=== PATIENT | female | born 1960 | race American Indian/Alaskan Native ===

== ENCOUNTER 2021-08-17 00:15 | Observation (INO) | payer OTHER ==
--- NOTE | 2021-08-17 00:26 | Emergency Department Report ---
HPI - General Chief Complaint: Syncope Time Seen by Provider: 08/17/21 00:18 - HPI HPI: This is a 61-year-old -[place] female presents to the emergency department via EMS from a local restaurant after she had an initial fall in the bathroom, and then had a syncopal episode and unresponsive episode with EMS. EMS went to evaluate the patient after her initial fall and the patient was awake, oriented, AAO x3. Family just wanted her evaluated. Initially she said that she felt fine and EMS was just assisting her outside so that her daughter can drive her home. At this time the patient suddenly passed out and went unresponsive. There initial call to us was that the patient was a GCS of 7, but she improved as they arrived to the emergency department. At the time of my initial examination the patient is awake, alert, oriented, AAO x3 but does appear slightly somnolent. Patient admits that she has been lethargic over the past week. She has a history of liver cancer without metastasis and is currently on chemotherapy. The patient also has a history of hypertension. ED Review of Systems ROS: Stated complaint: SYNCOPE Other details as noted in HPI Comment: All other systems reviewed and negative Constitutional: weakness. denies: chills, fever Eyes: denies: eye pain, vision change ENT: denies: ear pain, throat pain Respiratory: denies: cough, shortness of breath Cardiovascular: syncope. denies: chest pain Gastrointestinal: denies: abdominal pain, vomiting Genitourinary: denies: dysuria, discharge Musculoskeletal: denies: back pain, arthralgia Skin: denies: rash, lesions Neurological: headache. denies: numbness, paresthesias Physical Exam - Physical Exam Physical Exam: GENERAL: The patient is well-developed well-nourished. HENT: Normocephalic. Patient has moist mucous membranes. EYES: Extraocular motions are intact. Pupils equal reactive to light bilaterally. NECK: Supple. Trachea is midline. CHEST/LUNGS: Clear to auscultation. There is no respiratory distress noted. HEART/CARDIOVASCULAR: Regular. There is no tachycardia. There is no murmur. ABDOMEN: Abdomen is soft, nontender. Patient has normal bowel sounds. There is no abdominal distention. SKIN: Skin is warm and dry. There is some left periorbital ecchymosis and sw elling. NEURO: Patient is somnolent. She is arousable and once awake she is AAO x3. However she goes right back to sleep if not continuously stimulated. Once awake, cranial nerves II through XII are intact. No facial asymmetry. MUSCULOSKELETAL: There is no tenderness or deformity. There is no limitation range of motion. ED Medical Decision Making - Lab Data Result diagrams: 08/17/21 00:51 08/17/21 00:51 Lab Results 08/17/21 08/17/21 08/17/21 Range/Units 00:51 00:51 00:51 WBC 4.8 (4.5-11.0) K/mm3 RBC 4.26 (3.65-5.03) M/mm3 Hgb 11.1 (10.1-14.3) gm/dl Hct 34.3 (30.3-42.9) % MCV 81 (79-97) fl MCH 26 L (28-32) pg MCHC 32 (30-34) % RDW 19.9 H (13.2-15.2) % Plt Count 192 (140-440) K/mm3 Lymph % (Auto) 29.0 (13.4-35.0) % [place] % (Auto) 13.1 H (0.0-7.3) % Eos % (Auto) 1.6 (0.0-4.3) % Baso % (Auto) 0.7 (0.0-1.8) % Lymph # (Auto) 1.4 (1.2-5.4) K/mm3 [place] # (Auto) 0.6 (0.0-0.8) K/mm3 Eos # (Auto) 0.1 (0.0-0.4) K/mm3 Baso # (Auto) 0.0 (0.0-0.1) K/mm3 Seg Neutrophils % 55.6 (40.0-70.0) % Seg Neutrophils # 2.7 (1.8-7.7) K/mm3 PT (12.2-14.9) Sec. INR (0.87-1.13) APTT (24.2-36.6) Sec. Sodium 142 (137-145) mmol/L Potassium 3.2 L (3.6-5.0) mmol/L Chloride 104.0 (98-107) mmol/L Carbon Dioxide 26 (22-30) mmol/L Anion Gap 15 mmol/L BUN 6 L (7-17) mg/dL Creatinine 0.6 (0.6-1.2) mg/dL Estimated GFR > 60 ml/min BUN/Creatinine Ratio 10 % Glucose 116 H (65-100) mg/dL Calcium 9.9 (8.4-10.2) mg/dL Magnesium (1.7-2.3) mg/dL Total Bilirubin 0.60 (0.1-1.2) mg/dL AST 47 H (5-40) units/L ALT 20 (7-56) units/L Alkaline Phosphatase 84 (35-129) units/L Ammonia (25-60) umol/L Troponin T (0.00-0.029) ng/mL Total Protein 6.8 (6.3-8.2) g/dL Albumin 4.0 (3.9-5) g/dL Albumin/Globulin Ratio 1.4 % TSH (0.270-4.200) mlU/mL Plasma/Serum Alcohol 0.15 H (0-0.07) % 08/17/21 08/17/21 08/17/21 Range/Units 00:51 00:51 00:51 WBC (4.5-11.0) K/mm3 RBC (3.65-5.03) M/mm3 Hgb (10.1-14.3) gm/dl Hct (30.3-42.9) % MCV (79-97) fl MCH (28-32) pg MCHC (30-34) % RDW (13.2-15.2) % Plt Count (140-440) K/mm3 Lymph % (Auto) (13.4-35.0) % [place] % (Auto) (0.0-7.3) % Eos % (Auto) (0.0-4.3) % Baso % (Auto) (0.0-1.8) % Lymph # (Auto) (1.2-5.4) K/mm3 [place] # (Auto) (0.0-0.8) K/mm3 Eos # (Auto) (0.0-0.4) K/mm3 Baso # (Auto) (0.0-0.1) K/mm3 Seg Neutrophils % (40.0-70.0) % Seg Neutrophils # (1.8-7.7) K/mm3 PT 16.3 H (12.2-14.9) Sec. INR 1.26 H (0.87-1.13) APTT 30.1 (24.2-36.6) Sec. Sodium (137-145) mmol/L Potassium (3.6-5.0) mmol/L Chloride (98-107) mmol/L Carbon Dioxide (22-30) mmol/L Anion Gap mmol/L BUN (7-17) mg/dL Creatinine (0.6-1.2) mg/dL Estimated GFR ml/min BUN/Creatinine Ratio % Glucose (65-100) mg/dL Calcium (8.4-10.2) mg/dL Magnesium (1.7-2.3) mg/dL Total Bilirubin (0.1-1.2) mg/dL AST (5-40) units/L ALT (7-56) units/L Alkaline Phosphatase (35-129) units/L Ammonia 77.0 H (25-60) umol/L Troponin T < 0.010 (0.00-0.029) ng/mL Total Protein (6.3-8.2) g/dL Albumin (3.9-5) g/dL Albumin/Globulin Ratio % TSH (0.270-4.200) mlU/mL Plasma/Serum Alcohol (0-0.07) % 08/17/21 08/17/21 Range/Units 00:51 00:51 WBC (4.5-11.0) K/mm3 RBC (3.65-5.03) M/mm3 Hgb (10.1-14.3) gm/dl Hct (30.3-42.9) % MCV (79-97) fl MCH (28-32) pg MCHC (30-34) % RDW (13.2-15.2) % Plt Count (140-440) K/mm3 Lymph % (Auto) (13.4-35.0) % [place] % (Auto) (0.0-7.3) % Eos % (Auto) (0.0-4.3) % Baso % (Auto) (0.0-1.8) % Lymph # (Auto) (1.2-5.4) K/mm3 [place] # (Auto) (0.0-0.8) K/mm3 Eos # (Auto) (0.0-0.4) K/mm3 Baso # (Auto) (0.0-0.1) K/mm3 Seg Neutrophils % (40.0-70.0) % Seg Neutrophils # (1.8-7.7) K/mm3 PT (12.2-14.9) Sec. INR (0.87-1.13) APTT (24.2-36.6) Sec. Sodium (137-145) mmol/L Potassium (3.6-5.0) mmol/L Chloride (98-107) mmol/L Carbon Dioxide (22-30) mmol/L Anion Gap mmol/L BUN (7-17) mg/dL Creatinine (0.6-1.2) mg/dL Estimated GFR ml/min BUN/Creatinine Ratio % Glucose (65-100) mg/dL Calcium (8.4-10.2) mg/dL Magnesium 2.20 (1.7-2.3) mg/dL Total Bilirubin (0.1-1.2) mg/dL AST (5-40) units/L ALT (7-56) units/L Alkaline Phosphatase (35-129) units/L Ammonia (25-60) umol/L Troponin T (0.00-0.029) ng/mL Total Protein (6.3-8.2) g/dL Albumin (3.9-5) g/dL Albumin/Globulin Ratio % TSH 0.870 (0.270-4.200) mlU/mL Plasma/Serum Alcohol (0-0.07) % - EKG Data -: EKG Interpreted by Sc EKG shows normal: sinus rhythm, axis, intervals, QRS complexes, ST-T waves Rate: bradycardia (58 bpm) - EKG Data When compared to previous EKG there are: previous EKG unavailable Interpretation: normal EKG - Radiology Data Radiology results: report reviewed CT CERVICAL SPINE WITHOUT CONTRAST INDICATION / CLINICAL INFORMATION: Trauma. TECHNIQUE: Axial CT images were obtained through the cervical spine. Sagittal and coronal reformatted images were produced. All CT scans at this location are performed using CT dose reduction for ALARA by means of automated exposure control. COMPARISON: None available. FINDINGS: Alignment: Normal. No acute subluxation. Geographic Bone Lesion: None present. Fracture: No acute fracture. Degenerative Changes: Moderate multilevel degenerative changes are present, most pronounced at C5- C6 and C6-C7. Epidural Hematoma: Not present. Prevertebral / Paraspinal Soft Tissues: Unremarkable. IMPRESSION: No acute osseous findings in the cervical spine. CT head/brain wo con, CT facial bones wo con INDICATION: Trauma. TECHNIQUE: CT head and CT face. All CT scans at this location are performed using CT dose reduction for ALARA by means of automated exposure control. COMPARISON: None. FINDINGS: Head: Intracranial: Hernandez-white matter differentiation is maintained. No intracranial hemorrhage. No extra axial collection.. No hydrocephalus. No herniation. Calvarium: Left frontal scalp soft tissue swelling with small hematoma. No fracture of the calvarium. Face: Facial bones:Facial bones are intact without fracture. Mandibular condyles are well-seated within the glenoid fossa of the temporal mandibular joint. Bilateral TMJ osteoarthritis. Sinuses: Paranasal sinuses and mastoid air cells are essentially clear. Orbits: Globes are intact. Additional findings:No other significant abnormality. IMPRESSION: 1. Left frontal scalp soft tissue swelling with small hematoma. No acute calvarial fracture or acute intracranial abnormality. 2. No acute facial fracture. - Medical Decision Making This patient presents to the emergency department after she first had a mechanical fall in a restaurant, followed by a syncopal and unresponsive episode just outside of the restaurant. She arrives rather somnolent, but is easily arousable. Once awake she is oriented, AAO x3. She does not have any focal, motor or sensory deficits and her cranial nerves are intact. CT scan of the head without contrast does not show any fracture, hemorrhage, large vessel occlusion, or any other acute process. CT of the facial bones shows a left forehead hematoma, but no facial fractures. CT of the cervical spine without contrast does not show any fracture, subluxation, or any acute process. Patient's labs shows a blood alcohol level of 0.15, and elevated ammonia level of 77. Patient has been given some lactulose for the hyperammonemia. She has been given some IV fluid resuscitation. She was later given a dose of Toradol for her headache after a negative CT scan of the head. She has been reevaluated multiple times over multiple hours and she has improved throughout her ED course. The patient is no longer somnolent. However, given multiple falls, hyperammonemia, the patient will be admitted to the hospital for further evaluation and treatment and was accepted for admission by the hospitalist, Dr. Serrano. Critical Care Time: No Critical care attestation.: If time is entered above; I have spent that time in minutes in the direct care of this critically ill patient, excluding procedure time. ED Disposition Clinical Impression: Syncope and collapse, Hyperammonemia, Hypokalemia, Liver cancer, Unresponsive episode Disposition: ADMITTED INPATIENT Is pt being admited?: Yes Condition: Fair Instructions: Syncope (ED) Referrals: PRIMARY CARE, [Primary Care Provider] - 3-5 Days Time of Disposition: 03:28
--- NOTE | 2021-08-17 00:56 | XRay Report ---
XR chest 1V ap INDICATION / CLINICAL INFORMATION: Altered mental status. COMPARISON: None available. FINDINGS: SUPPORT DEVICES: None. HEART /PULMONARY VASCULATURE: No significant abnormality. LUNGS / PLEURA: No significant pulmonary or pleural abnormality. No pneumothorax. ADDITIONAL FINDINGS: No significant additional findings. IMPRESSION: 1. No acute findings. Signer Name: Theo Montes MD Signed: 08/17/2021 12:52 AM Workstation Name: [id number]
[2021-08-17 01:06] LABS: Basophils % (Auto) 0.7 % (0.0-1.8); Eosinophils # (Auto) 0.1 K/mm3 (0.0-0.4); Eosinophils % (Auto) 1.6 % (0.0-4.3); Hematocrit 34.3 % (30.3-42.9); Hemoglobin 11.1 gm/dl (10.1-14.3); Lymphocytes # (Auto) 1.4 K/mm3 (1.2-5.4); Mean Corpuscular HGB Conc 32 % (30-34); Mean Corpuscular Volume 81 fl (79-97); Monocytes # (Auto) 0.6 K/mm3 (0.0-0.8); Monocytes % (Auto) 13.1 % (0.0-7.3); Platelet Count 192 K/mm3 (140-440); Red Blood Count 4.26 M/mm3 (3.65-5.03); Red Cell Distribution Width 19.9 % (13.2-15.2)
[2021-08-17] MEDS ORDERED: ACETAMINOPHEN 325 MG TAB PO ONE (01:13)
[2021-08-17 01:16] LABS: INR 1.26 (0.87-1.13)
[2021-08-17 01:17] LABS: Partial Thromboplastin Time 30.1 Sec. (24.2-36.6)
--- NOTE | 2021-08-17 01:26 | Cat Scan Report ---
CT CERVICAL SPINE WITHOUT CONTRAST INDICATION / CLINICAL INFORMATION: Trauma. TECHNIQUE: Axial CT images were obtained through the cervical spine. Sagittal and coronal reformatted images were produced. All CT scans at this location are performed using CT dose reduction for ALARA by means of automated exposure control. COMPARISON: None available. FINDINGS: Alignment: Normal. No acute subluxation. Geographic Bone Lesion: None present. Fracture: No acute fracture. Degenerative Changes: Moderate multilevel degenerative changes are present, most pronounced at C5-C6 and C6-C7. Epidural Hematoma: Not present. Prevertebral / Paraspinal Soft Tissues: Unremarkable. IMPRESSION: No acute osseous findings in the cervical spine. Signer Name: Theo Montes MD Signed: 08/17/2021 1:21 AM Workstation Name: [id number]
[2021-08-17] MEDS ORDERED: SODIUM CHLORIDE 0.9% 1000 ML 1,000 ML IV ONE (01:29)
[2021-08-17 01:36] LABS: Alanine Aminotransferase 20 units/L (7-56); Blood Urea Nitrogen 6 mg/dL (7-17); Calcium 9.9 mg/dL (8.4-10.2); Hemolysis Index 9
[2021-08-17 01:40] LABS: BUN/Creatinine Ratio 10
--- NOTE | 2021-08-17 01:40 | Cat Scan Report ---
CT head/brain wo con, CT facial bones wo con INDICATION: Trauma. TECHNIQUE: CT head and CT face. All CT scans at this location are performed using CT dose reduction f or ALARA by means of automated exposure control. COMPARISON: None. FINDINGS: Head: Intracranial: Hernandez-white matter differentiation is maintained. No intracranial hemorrhage. No extra a xial collection.. No hydrocephalus. No herniation. Calvarium: Left frontal scalp soft tissue swelling with small hematoma. No fracture of the calvarium. Face: Facial bones:Facial bones are intact without fracture. Mandibular condyles are well-seated within the glenoid fossa of the temporal mandibular joint. Bilateral TMJ osteoarthritis. Sinuses: Paranasal sinuses and mastoid air cells are essentially clear. Orbits: Globes are intact. Additional findings:No other significant abnormality. IMPRESSION: 1. Left frontal scalp soft tissue swelling with small hematoma. No acute calvarial fracture or acute intracranial abnormality. 2. No acute facial fracture. Signer Name: Theo Montes MD Signed: 08/17/2021 1:35 AM Workstation Name: [id number]
[2021-08-17] MEDS ORDERED: KETOROLAC 30 MG/1 ML INJ IV ONE (01:45)
[2021-08-17] MEDS ORDERED: POTASSIUM CHLORIDE ER 20 MEQ TAB PO ONE ×2 (02:44→12:00)
[2021-08-17] MEDS ORDERED: LACTULOSE 20 GM/30 ML ORAL LIQD PO ONE (03:27)
[2021-08-17] MEDS ORDERED: ONDANSETRON 4 MG/2 ML INJ IV PRN (04:15)
[2021-08-17] MEDS ORDERED: MAGNESIUM HYDROXIDE (MOM) ORAL LIQD UDC PO PRN (04:15)
[2021-08-17] MEDS ORDERED: IBUPROFEN 600 MG TAB PO PRN (04:15)
--- NOTE | 2021-08-17 04:33 | History and Physical Report ---
History of Present Illness Date of examination: 08/17/21 Date of admission: 08/17/2021 Chief complaint: Syncope History of present illness: 61-year-old -[place] female with known history of hypertension and liver cancer currently on chemotherapy brought into the emergency room today by EMS from a local restaurant after a syncopal episode. Patient was said to have had an initial fall in the bathroom and then had a syncopal episode and thereafter and nonresponsive episode according to EMS. Upon arrival of EMS patient was said to be alert and oriented x3 but appeared slightly somnolent. Patient indicates that she has been lethargic over the past week. She has had multiple falls in the past few days. She denies any history of seizure disorder. Patient indicates that she felt slightly dizzy prior to having a fall. She denies any headache and denies any diaphoresis. She admits to drinking alcohol but indicates that she has been trying to cut back since the diagnosis of her liver cancer in January 2021. Patient has been following up with [facility] hematology/oncology for chemotherapy. She denies any chest pain or shortness of breath, no nausea vomiting, no abdominal pain. She denies any fever or chills, denies any sick contacts and no recent travel. Denies any contact with anyone with COVID-19. Patient has had a full immunization against COVID-19. Work-up in the emergency room today, CT scan of the head shows: 1. Left frontal scalp soft tissue swelling with small hematoma. No acute calvarial fracture or acute intracranial abnormality. 2. No acute facial fracture. Chest x-ray shows no acute findings. Labs were significant for PT of 16.3 and INR 1.26. Potassium of 3.2, ammonia level of 77, AST slightly elevated at 47, serum alcohol level 0.15. Patient with history of liver cancer and also history of alcohol abuse being admitted with syncope/collapse, hypokalemia, hypoxia and hyperammonemia. Past History Past Medical History: hypertension, other (Liver ca. on Chemo.) Past Surgical History: cholecystectomy Social history: alcohol abuse Family history: no significant family history Medications and Allergies Allergies Allergy/AdvReac Type Severity Reaction Status Date / Time No Known Allergies Allergy Verified 08/17/21 00:36 Active Meds: Active Medications Heparin Sodium (Porcine) (Heparin 5,000 Unit/1 Ml Vial) 5,000 unit SUB-Q Q8HR DEBORAH Sodium Chloride (Nacl 0.9% 1000 Ml) 1,000 mls @ 250 mls/hr IV ONCE ONE Stop: 08/17/21 05:28 Last Admin: 08/17/21 01:55 Dose: 250 mls/hr Documented by: Sodium Chloride (Nacl 0.9% 1000 Ml) 1,000 mls @ 75 mls/hr IV DIRECT DEBORAH Ibuprofen (Ibuprofen 600 Mg Tab) 600 mg PO Q6H PRN PRN Reason: Pain, Mild (1-3) Magnesium Hydroxide (Magnesium Hydroxide (Mom) Oral Liqd Udc) 30 ml PO Q4H PRN PRN Reason: Constipation Morphine Sulfate (Morphine 2 Mg/1 Ml Inj) 2 mg IV Q4H PRN PRN Reason: Pain, Moderate (4-6) Morphine Sulfate (Morphine 4 Mg/1 Ml Inj) 4 mg IV Q4H PRN PRN Reason: Pain , Severe (7-10) Ondansetron HCl (Ondansetron 4 Mg/2 Ml Inj) 4 mg IV Q8H PRN PRN Reason: Nausea And Vomiting Sodium Chloride (Sodium Chloride 0.9% 10 Ml Flush Syringe) 10 ml IV BID DEBORAH Sodium Chloride (Sodium Chloride 0.9% 10 Ml Flush Syringe) 10 ml IV PRN PRN PRN Reason: LINE FLUSH Review of Systems Constitutional: no fever, no chills Ears, nose, mouth and throat: no nasal congestion, no sore throat Cardiovascular: no chest pain, no palpitations Respiratory: no cough, no shortness of breath Gastrointestinal: no abdominal pain, no nausea, no vomiting, no diarrhea Genitourinary Female: no flank pain, no dysuria, no hematuria Musculoskeletal: no neck pain, no low back pain Integumentary: no rash, no pruritis Neurological: syncope, no headaches, no confusion Psychiatric: no anxiety, no depression Endocrine: no polyphagia, no polydipsia, no polyuria, no nocturia Exam - Constitutional Vitals: Temp Pulse Resp BP Pulse Ox 70 22 141/83 97 08/17/21 03:15 08/17/21 03:15 08/17/21 03:15 08/17/21 03:15 General appearance: Present: no acute distress, well-nourished, obese, other (Bruises and swelling over the left eyelid.) - EENT Eyes: Present: PERRL, EOM intact. Absent: scleral icterus ENT: hearing intact, clear oral mucosa, dentition normal - Neck Neck: Present: supple, normal ROM - Respiratory Respiratory effort: normal Respiratory: bilateral: CTA - Cardiovascular Rhythm: regular Heart Sounds: Present: S1 & S2. Absent: gallop, systolic murmur, diastolic murmur, rub, click - Extremities Extremities: no ischemia, pulses intact, pulses symmetrical, No edema, normal temperature, normal color, Full ROM Peripheral Pulses: within normal limits - Abdominal General gastrointestinal: Present: soft, non-tender, non-distended, normal bowel sounds. Absent: mass - Integumentary Integumentary: Present: clear, warm, dry. Absent: rash - Musculoskeletal Musculoskeletal: strength equal bilaterally - Psychiatric Psychiatric: appropriate mood/affect, intact judgment & insight, memory intact, cooperative - Neurologic Neurologic: CNII-XII intact, no focal deficits, moves all extremities HEART Score - HEART Score Troponin: Troponin T < 0.010 ng/mL (0.00-0.029) 08/17/21 00:51 Results - Labs CBC & Chem 7: 08/17/21 00:51 08/17/21 00:51 Labs: Abnormal lab results 08/17/21 08/17/21 08/17/21 Range/Units 00:51 00:51 00:51 MCH 26 L (28-32) pg RDW 19.9 H (13.2-15.2) % Day % (Auto) 13.1 H (0.0-7.3) % PT (12.2-14.9) Sec. INR (0.87-1.13) Potassium 3.2 L (3.6-5.0) mmol/L BUN 6 L (7-17) mg/dL Glucose 116 H (65-100) mg/dL AST 47 H (5-40) units/L Ammonia (25-60) umol/L Plasma/Serum Alcohol 0.15 H (0-0.07) % 08/17/21 08/17/21 Range/Units 00:51 00:51 MCH (28-32) pg RDW (13.2-15.2) % Day % (Auto) (0.0-7.3) % PT 16.3 H (12.2-14.9) Sec. INR 1.26 H (0.87-1.13) Potassium (3.6-5.0) mmol/L BUN (7-17) mg/dL Glucose (65-100) mg/dL AST (5-40) units/L Ammonia 77.0 H (25-60) umol/L Plasma/Serum Alcohol (0-0.07) % Assessment and Plan - Patient Problems (1) Syncope and collapse Current Visit: Yes Status: Acute Plan to address problem: Etiology unclear. Possibly secondary to alcohol abuse. However we will schedule patient for carotid Doppler, echocardiogram. Patient had an episode of unresponsiveness with unclear etiology. We will place consult to neurology for evaluation and further recommendations. (2) Hyperammonemia Current Visit: Yes Status: Acute Plan to address problem: Possibly secondary to a history of hepatitis with concurrent liver cancer. We will monitor ammonia levels. Patient has been given lactulose. (3) Hypokalemia Current Visit: Yes Status: Acute Plan to address problem: We will replete potassium and monitor chemistry. (4) Liver cancer Current Visit: Yes Status: Acute Plan to address problem: Patient has known history of hepatitis C. She is currently on chemotherapy for liver cancer. No history of metastasis. She follows up with [facility] oncology. (5) Alcohol abuse Current Visit: Yes Status: Acute Plan to address problem: Patient counseled on quitting alcohol abuse. We will place on [facility] protocol. (6) DVT prophylaxis Current Visit: Yes Status: Acute Plan to address problem: Patient placed on subcutaneous heparin. (7) Full code status Current Visit: Yes Status: Acute Plan to address problem: Patient is full code.
[2021-08-17] MEDS ORDERED: LORazepam 2 MG/ML VIAL IV PRN ×3 (05:00)
[2021-08-17] MEDS: HEPARIN 5,000 UNIT/1 ML VIAL SUB-Q SCH ×3 (06:20→22:05)
[2021-08-17] MEDS: MORPHINE 2 MG/1 ML INJ IV PRN ×2 (06:20→19:58)
[2021-08-17 08:33] LABS: Amphetamine Screen,Urine Negative; Cannabinoid Screen,Urine Negative; Cocaine Screen,Urine Negative; Methadone Screen,Urine Negative; Opiate Screen,Urine Negative
[2021-08-17 09:03] LABS: Benzodiazepines Screen,Urine Positive
--- NOTE | 2021-08-17 11:08 | Progress Note ---
Assessment and Plan Assessment and plan: Assessment and Plan - Patient Problems (1) Syncope and collapse Current Visit: Yes Status: Acute Plan to address problem: Etiology unclear. Possibly secondary to alcohol abuse. However we will schedule patient for carotid Doppler, echocardiogram. Patient had an episode of unresponsiveness with unclear etiology. We will place consult to neurology for evaluation and further recommendations. (2) Hyperammonemia Current Visit: Yes Status: Acute Plan to address problem: Possibly secondary to a history of hepatitis with concurrent liver cancer. We will monitor ammonia levels. Patient has been given lactulose. (3) Hypokalemia Current Visit: Yes Status: Acute Plan to address problem: We will replete potassium and monitor chemistry. (4) Liver cancer Current Visit: Yes Status: Acute Plan to address problem: Patient has known history of hepatitis C. She is currently on chemotherapy for liver cancer. No history of metastasis. She follows up with [facility] oncology. (5) Alcohol abuse Current Visit: Yes Status: Acute Plan to address problem: Patient counseled on quitting alcohol abuse. We will place on CIWA protocol. (6) DVT prophylaxis Current Visit: Yes Status: Acute Plan to address problem: Patient placed on subcutaneous heparin. (7) Full code status Current Visit: Yes Status: Acute Plan to address problem: Patient is full code. 08/17/21 patient is seen and examined. Lab and medication reviewed. Patient complained of some pain in the left side of the face and tailbone.CT scan of the head shows: 1. Left frontal scalp soft tissue swelling with small hematoma. No acute ca lvarial fracture or acute intracranial abnormality. 2. No acute facial fracture. Continue current management. We will do a x-ray of the pelvis. PT evaluation. Follow carotid Doppler and echocardiogram. Neurology evaluation. History of Present Illness Date of examination: 08/17/21 Date of admission: 08/17/2021 Chief complaint: Syncope History of present illness: 61-year-old -Ang[place] female with known history of hypertension and liver cancer currently on chemotherapy brought into the emergency room today by EMS from a local restaurant after a syncopal episode. Patient was said to have had an initial fall in the bathroom and then had a syncopal episode and thereafter and nonresponsive episode according to EMS. Upon arrival of EMS patient was said to be alert and oriented x3 but appeared slightly somnolent. Patient indicates that she has been lethargic over the past week. She has had multiple falls in the past few days. She denies any history of seizure disorder. Patient indicates that she felt slightly dizzy prior to having a fall. She den ies any headache and denies any diaphoresis. She admits to drinking alcohol but indicates that she has been trying to cut back since the diagnosis of her liver cancer in January 2021. Patient has been following up with [facility] hematology/oncology for chemotherapy. She denies any chest pain or shortness of breath, no nausea vomiting, no abdominal pain. She denies any fever or chills, denies any sick contacts and no recent travel. Denies any contact with anyone with COVID-19. Patient has had a full immunization against COVID-19. Work-up in the emergency room today, CT scan of the head shows: 1. Left frontal scalp soft tissue swelling with small hematoma. No acute calvarial fracture or acute intracranial abnormality. 2. No acute facial fracture. Chest x-ray shows no acute findings. Labs were significant for PT of 16.3 and INR 1.26. Potassium of 3.2, ammonia level of 77, AST slightly elevated at 47, serum alcohol level 0.15. Patient with history of liver cancer and also history of alcohol abuse being admitted with syncope/collapse, hypokalemia, hypoxia and hyperammonemia. History Interval history: Patient is seen and examined Lab and medication reviewed Patient is admitted this morning complaining of pain in the left side of the face and tailbone. No shortness of breath no chest pain. Hospitalist Physical - Constitutional Vitals: Temp Pulse Resp BP Pulse Ox 97.7 F 59 L 14 145/79 99 08/17/21 08:07 08/17/21 08:11 08/17/21 08:11 08/17/21 08:11 08/17/21 08:11 General appearance: Present: no acute distress, mild distress, well-nourished, obese, other (Bruises and swelling over the left eyelid.) - EENT Eyes: Present: PERRL, EOM intact ENT: hearing intact, clear oral mucosa, dentition normal - Neck Neck: Present: supple, normal ROM - Respiratory Respiratory effort: normal - Cardiovascular Rhythm: regular Heart Sounds: Present: S1 & S2 - Extremities Extremities: no ischemia, pulses intact, No edema Peripheral Pulses: within normal limits - Abdominal General gastrointestinal: soft, non-tender, non-distended, normal bowel sounds - Integumentary Integumentary: Present: clear, warm, dry - Psychiatric Psychiatric: appropriate mood/affect, intact judgment & insight - Neurologic Neurologic: CNII-XII intact, moves all extremities - Allied Health Allied health notes reviewed: nursing HEART Score - HEART Score Troponin: Troponin T < 0.010 ng/mL (0.00-0.029) 08/17/21 00:51 Results - Labs CBC & Chem 7: 08/17/21 00:51 08/17/21 00:51 Labs: Laboratory Last Values WBC 4.8 K/mm3 (4.5-11.0) 08/17/21 00:51 RBC 4.26 M/mm3 (3.65-5.03) 08/17/21 00:51 Hgb 11.1 gm/dl (10.1-14.3) 08/17/21 00:51 Hct 34.3 % (30.3-42.9) 08/17/21 00:51 MCV 81 fl (79-97) 08/17/21 00:51 MCH 26 pg (28-32) L 08/17/21 00:51 MCHC 32 % (30-34) 08/17/21 00:51 RDW 19.9 % (13.2-15.2) H 08/17/21 00:51 Plt Count 192 K/mm3 (140-440) 08/17/21 00:51 Lymph % (Auto) 29.0 % (13.4-35.0) 08/17/21 00:51 [place] % (Auto) 13.1 % (0.0-7.3) H 08/17/21 00:51 Eos % (Auto) 1.6 % (0.0-4.3) 08/17/21 00:51 Baso % (Auto) 0.7 % (0.0-1.8) 08/17/21 00:51 Lymph # (Auto) 1.4 K/mm3 (1.2-5.4) 08/17/21 00:51 [place] # (Auto) 0.6 K/mm3 (0.0-0.8) 08/17/21 00:51 Eos # (Auto) 0.1 K/mm3 (0.0-0.4) 08/17/21 00:51 Baso # (Auto) 0.0 K/mm3 (0.0-0.1) 08/17/21 00:51 Seg Neutrophils % 55.6 % (40.0-70.0) 08/17/21 00:51 Seg Neutrophils # 2.7 K/mm3 (1.8-7.7) 08/17/21 00:51 PT 16.3 Sec. (12.2-14.9) H 08/17/21 00:51 INR 1.26 (0.87-1.13) H 08/17/21 00:51 APTT 30.1 Sec. (24.2-36.6) 08/17/21 00:51 Sodium 142 mmol/L (137-145) 08/17/21 00:51 Potassium 3.2 mmol/L (3.6-5.0) L 08/17/21 00:51 Chloride 104.0 mmol/L (98-107) 08/17/21 00:51 Carbon Dioxide 26 mmol/L (22-30) 08/17/21 00:51 Anion Gap 15 mmol/L 08/17/21 00:51 BUN 6 mg/dL (7-17) L 08/17/21 00:51 Creatinine 0.6 mg/dL (0.6-1.2) 08/17/21 00:51 Estimated GFR > 60 ml/min 08/17/21 00:51 BUN/Creatinine Ratio 10 % 08/17/21 00:51 Glucose 116 mg/dL (65-100) H 08/17/21 00:51 Calcium 9.9 mg/dL (8.4-10.2) 08/17/21 00:51 Magnesium 2.20 mg/dL (1.7-2.3) 08/17/21 00:51 Total Bilirubin 0.60 mg/dL (0.1-1.2) 08/17/21 00:51 AST 47 units/L (5-40) H 08/17/21 00:51 ALT 20 units/L (7-56) 08/17/21 00:51 Alkaline Phosphatase 84 units/L (35-129) 08/17/21 00:51 Ammonia 77.0 umol/L (25-60) H 08/17/21 00:51 Troponin T < 0.010 ng/mL (0.00-0.029) 08/17/21 00:51 Total Protein 6.8 g/dL (6.3-8.2) 08/17/21 00:51 Albumin 4.0 g/dL (3.9-5) 08/17/21 00:51 Albumin/Globulin Ratio 1.4 % 08/17/21 00:51 TSH 0.870 mlU/mL (0.270-4.200) 08/17/21 00:51 Urine Opiates Screen Negative 08/17/21 08:01 Urine Methadone Screen Negative 08/17/21 08:01 Ur Barbiturates Screen Negative 08/17/21 08:01 Ur Phencyclidine Scrn Negative 08/17/21 08:01 Ur Amphetamines Screen Negative 08/17/21 08:01 U Benzodiazepines Scrn Positive 08/17/21 08:01 Urine Cocaine Screen Negative 08/17/21 08:01 U Marijuana (THC) Screen Negative 08/17/21 08:01 Drugs of Abuse Note Disclamer 08/17/21 08:01 Plasma/Serum Alcohol 0.15 % (0-0.07) H 08/17/21 00:51 Active Medications - Current Medications Current Medications: Generic Name Dose Route Start Last Admin Trade Name Freq PRN Reason Stop Dose Admin Heparin Sodium (Porcine) 5,000 unit 08/17/21 06:00 08/17/21 06:20 Heparin 5,000 Unit/1 Ml Vial SUB-Q 5,000 unit Q8HR DEBORAH Administration Sodium Chloride 1,000 mls @ 75 mls/hr 08/17/21 04:15 Nacl 0.9% 1000 Ml IV DIRECT DEBORAH Ibuprofen 600 mg 08/17/21 04:15 Ibuprofen 600 Mg Tab PO Q6H PRN Pain, Mild (1-3) Lorazepam 2 mg 08/17/21 05:00 Lorazepam 2 Mg/Ml Vial IV Q1HR PRN CIWA-Ar 8-15 Lorazepam 4 mg 08/17/21 05:00 Lorazepam 2 Mg/Ml Vial IV Q1HR PRN CIWA-Ar 16-25 Lorazepam 4 mg 08/17/21 05:00 Lorazepam 2 Mg/Ml Vial IV Q15MIN PRN CIWA-Ar >25 Magnesium Hydroxide 30 ml 08/17/21 04:15 Magnesium Hydroxide (Mom) Oral Liqd Udc PO Q4H PRN Constipation Morphine Sulfate 2 mg 08/17/21 04:15 08/17/21 06:20 Morphine 2 Mg/1 Ml Inj IV 2 mg Q4H PRN Administration Pain, Moderate (4-6) Morphine Sulfate 4 mg 08/17/21 04:15 Morphine 4 Mg/1 Ml Inj IV Q4H PRN Pain , Severe (7-10) Ondansetron HCl 4 mg 08/17/21 04:15 Ondansetron 4 Mg/2 Ml Inj IV Q8H PRN Nausea And Vomiting Sodium Chloride 10 ml 08/17/21 10:00 Sodium Chloride 0.9% 10 Ml Flush Syringe IV BID DEBORAH Sodium Chloride 10 ml 08/17/21 04:15 Sodium Chloride 0.9% 10 Ml Flush Syringe IV PRN PRN LINE FLUSH Nutrition/Malnutrition Assess - Malnutrition Assessment Minimum of two criteria: Yes - Attestation Statement I have reviewed and agreed w/ Malnutrition eval & tx plan: Yes
[2021-08-17 11:22] LABS: Bilirubin,Urine NEG (Negative); Blood,Urine NEG (Negative); Color,Urine Yellow (Yellow); Mucus,Urine FEW /HPF; Protein,Urine <15 mg/dL mg/dL (Negative); Urobilinogen,Urine < 2.0 mg/dL (<2.0)
--- NOTE | 2021-08-17 11:47 | XRay Report ---
AP pelvis INDICATION: Pain in the tailbone. COMPARISON: None. IMPRESSION: No acute osseous abnormality. Soft tissues are normal. Normal alignment. No significa nt DJD. Signer Name: Aries Lima MD Signed: 08/17/2021 11:43 AM Workstation Name: [email or web address]
--- NOTE | 2021-08-17 13:15 | Electrocardiograph Report ---
[facility] Test Date: 2021-08-17 Test Time: 00:28:29 Pat Name: MARBELLA VIDALES Department: Room: A466 1 Gender: F Pmo Lead: MICHELLE : 1960 Requested By: HEATHER JAMES Order Number: [id number] Reading MD: Bishop Garcia Measurements Intervals [place] Rate: 58 P: 44 NE: 184 QRS: 46 QRSD: 94 T: 43 QT: 451 QTc: 442 Interpretive Statements Sinus bradycardia No previous ECG available for comparison Electronically Signed On 08-17-2021 13:15:02 EDT by Bishop Garcia
[2021-08-17] MEDS: SODIUM CHLORIDE 0.9% 1000 ML 1,000 ML IV SCH (17:00)
[2021-08-18] MEDS: MORPHINE 4 MG/1 ML INJ IV PRN ×3 (00:26→22:06)
[2021-08-18 01:41] LABS: Blood Urea Nitrogen 8 mg/dL (7-17); Calcium 7.8 mg/dL (8.4-10.2); Hemolysis Index 4
[2021-08-18 01:44] LABS: BUN/Creatinine Ratio 13
[2021-08-18] MEDS ORDERED: POTASSIUM CHLORIDE ER 20 MEQ TAB PO ONE (05:00)
[2021-08-18] MEDS: SODIUM CHLORIDE 0.9% 1000 ML 1,000 ML IV SCH ×2 (05:11→08:43)
[2021-08-18] MEDS: HEPARIN 5,000 UNIT/1 ML VIAL SUB-Q SCH (05:12)
[2021-08-18 06:14] LABS: Basophils % (Auto) 0.4 % (0.0-1.8); Eosinophils # (Auto) 0.2 K/mm3 (0.0-0.4); Eosinophils % (Auto) 5.1 % (0.0-4.3); Hematocrit 29.8 % (30.3-42.9); Hemoglobin 9.9 gm/dl (10.1-14.3); Lymphocytes # (Auto) 1.7 K/mm3 (1.2-5.4); Lymphocytes % (Auto) 42.3 % (13.4-35.0); Mean Corpuscular HGB Conc 33 % (30-34); Mean Corpuscular Volume 81 fl (79-97); Monocytes # (Auto) 0.4 K/mm3 (0.0-0.8); Monocytes % (Auto) 8.9 % (0.0-7.3); Platelet Count 139 K/mm3 (140-440); Red Blood Count 3.67 M/mm3 (3.65-5.03); Red Cell Distribution Width 20.2 % (13.2-15.2)
[2021-08-18 06:19] LABS: Blood Urea Nitrogen 8 mg/dL (7-17); Calcium 8.3 mg/dL (8.4-10.2); Hemolysis Index 5; INR 1.4 (0.87-1.13)
[2021-08-18 06:42] LABS: BUN/Creatinine Ratio 13
--- NOTE | 2021-08-18 08:38 | Discharge Summary ---
Providers - Providers Date of Admission: 08/17/21 03:28 Attending physician: KEENAN ELI MD 08/17/21 04:15 Consult to Physician [CONS] Routine Comment: Consulting Provider: MIYA MUIR Physician Instructions: Reason For Exam: Altered Mental status, Unresponsiveness Primary care physician: OCCUPATIONAL THERAPY TEACHER Hospitalization Reason for admission: syncope collapase Condition: Stable Hospital course: 61-year-old -[place] female with known history of hypertension and liver cancer currently on chemotherapy brought into the emergency room today by EMS from a local restaurant after a syncopal episode. Patient was said to have had an initial fall in the bathroom and then had a syncopal episode and thereafter and nonresponsive episode according to EMS. Upon arrival of EMS patient was said to be alert and oriented x3 but appeared slightly somnolent. Patient indicates that she has been lethargic over the past week. She has had multiple falls in the past few days. She denies any history of seizure disorder. Patient indicates that she felt slightly dizzy prior to having a fall. She denies any headache and denies any diaphoresis. She admits to drinking alcohol but indicates that she has been trying to cut back since the diagnosis of her liver cancer in January 2021. Patient has been following up with [facility] hematology/oncology for chemotherapy. She denies any chest pain or shortness of breath, no nausea vomiting, no abdominal pain. She denies any fever or chills, denies any sick contacts and no recent travel. Denies any contact with anyone with COVID-19. Patient has had a full immunization against COVID-19. Work-up in the emergency room today, CT scan of the head shows: 1. Left frontal scalp soft tissue swelling with small hematoma. No acute calvarial fracture or acute intracranial abnormality. 2. No acute facial fracture. Chest x-ray shows no acute findings. Labs were significant for PT of 16.3 and INR 1.26. Potassium of 3.2, ammonia level of 77, AST slightly elevated at 47, serum alcohol level 0.15. Patient with history of liver cancer and also history of alcohol abuse being adm itted with syncope/collapse, hypokalemia, hypoxia and hyperammonemia. 08/17/21 patient is seen and examined. Lab and medication reviewed. Patient complained of some pain in the left side of the face and tailbone.CT scan of the head shows: 1. Left frontal scalp soft tissue swelling with small hematoma. No acute calvarial fracture or acute intracranial abnormality. 2. No acute facial fracture. Continue current management. We will do a x-ray of the pelvis. PT evaluation. Follow carotid Doppler and echocardiogram. Neurology evaluation. 08/18: Pt seen and examined, resting well, still with pain in the low back, imaging studies with no new complaints. Patient pain improved. Recommend follow up with cardiology (1) Syncope and collapse (2) Hyperammonemia (3) Hypokalemia (4) Liver cancer (5) Alcohol abuse (6) Low back pain Disposition: 01 HOME / SELF CARE / HOMELESS Final Discharge Diagnosis (Prints w/discharge instructions): Syncope and collapse Time spent for discharge: 35 MINS Core Measure Documentation - Palliative Care Palliative Care/ Comfort Measures: Not Applicable - Core Measures Any of the following diagnoses?: none Exam - Constitutional Vitals: Temp Pulse Resp BP Pulse Ox 98.2 F 72 18 141/68 98 08/18/21 04:32 08/18/21 04:32 08/18/21 04:32 08/18/21 04:32 08/18/21 05:00 General appearance: Present: no acute distress, well-nourished, obese - EENT Eyes: Present: PERRL, EOM intact ENT: hearing intact, clear oral mucosa - Neck Neck: Present: supple, normal ROM - Respiratory Respiratory effort: normal Respiratory: bilateral: CTA - Cardiovascular Rhythm: regular Heart Sounds: Present: S1 & S2. Absent: systolic murmur, diastolic murmur - Extremities Extremities: no ischemia, pulses intact, pulses symmetrical, No edema, normal temperature, normal color, Full ROM Peripheral Pulses: within normal limits - Abdominal General gastrointestinal: Present: soft, non-tender, non-distended, normal bowel sounds - Musculoskeletal Musculoskeletal: strength equal bilaterally - Psychiatric Psychiatric: appropriate mood/affect - Neurologic Neurologic: CNII-XII intact, moves all extremities - Allied Health Allied health notes reviewed: nursing Plan Activity: advance as tolerated, up only with assistance Diet: low fat Special Instructions: record daily weights, record daily BP diary Plan of Treatment: please follow with your mcat tutor considering syncope Also if any persistent headache, ringing in the ear, Follow up with: PRIMARY CARE, [Primary Care Provider] - 3-5 Days
[2021-08-18] MEDS: POTASSIUM CHLORIDE 10 MEQ 10 MEQ/100 ML BAG IV SCH ×4 (08:42→13:19)
--- NOTE | 2021-08-18 08:43 | Consultation ---
Past History Past Medical History: hypertension, other (Liver ca. on Chemo.) Past Surgical History: cholecystectomy Social history: alcohol abuse Family history: no significant family history Medications and Allergies Allergies Allergy/AdvReac Type Severity Reaction Status Date / Time No Known Allergies Allergy Verified 08/17/21 00:36 Home Medications Medication Instructions Recorded Confirmed Last Taken Type ALPRAZolam [Xanax TAB] 0.5 mg PO BID PRN 08/17/21 08/17/21 Unknown History Biotin [Biotin 5,000 rapdis] 5,000 mcg PO DAILY 08/17/21 08/17/21 Unknown History Capecitabine [Xeloda] 500 mg PO BID 08/17/21 08/17/21 08/17/21 18:00 History Cetirizine HCl [Cetirizine 5mg tab] 10 mg PO DAILY 08/17/21 08/17/21 Unknown History Cholecalciferol (Vitamin D3) 125 mcg PO DAILY 08/17/21 08/17/21 Unknown History [Vitamin D3 5,000 UNIT] HYDROcodone/APAP 7.5-325 [Oscar 7.5 mg PO BID PRN 08/17/21 08/17/21 Unknown History 7.5-325 mg TAB] Potassium Chloride [K-Dur] 20 meq PO QDAY 08/17/21 08/17/21 Unknown History Sertraline [Zoloft] 100 mg PO QDAY 08/17/21 08/17/21 Unknown History Active Meds: Active Medications Sodium Chloride (Nacl 0.9% 1000 Ml) 1,000 mls @ 75 mls/hr IV DIRECT DEBORAH Last Admin: 08/18/21 05:11 Dose: 75 mls/hr Documented by: Potassium Chloride (Kcl 10meq/100ml) 10 meq in 100 mls @ 100 mls/hr IV Q1H DEBORAH Stop: 08/18/21 11:59 Ibuprofen (Ibuprofen 600 Mg Tab) 600 mg PO Q6H PRN PRN Reason: Pain, Mild (1-3) Lorazepam (Lorazepam 2 Mg/Ml Vial) 2 mg IV Q1HR PRN PRN Reason: CIWA-Ar 8-15 Lorazepam (Lorazepam 2 Mg/Ml Vial) 4 mg IV Q1HR PRN PRN Reason: CIWA-Ar 16-25 Lorazepam (Lorazepam 2 Mg/Ml Vial) 4 mg IV Q15MIN PRN PRN Reason: CIWA-Ar >25 Magnesium Hydroxide (Magnesium Hydroxide (Mom) Oral Liqd Udc) 30 ml PO Q4H PRN PRN Reason: Constipation Morphine Sulfate (Morphine 2 Mg/1 Ml Inj) 2 mg IV Q4H PRN PRN Reason: Pain, Moderate (4-6) Last Admin: 08/17/21 19:58 Dose: 2 mg Documented by: Morphine Sulfate (Morphine 4 Mg/1 Ml Inj) 4 mg IV Q4H PRN PRN Reason: Pain , Severe (7-10) Last Admin: 08/18/21 05:07 Dose: 4 mg Documented by: Ondansetron HCl (Ondansetron 4 Mg/2 Ml Inj) 4 mg IV Q8H PRN PRN Reason: Nausea And Vomiting Sodium Chloride (Sodium Chloride 0.9% 10 Ml Flush Syringe) 10 ml IV BID DEBORAH Last Admin: 08/17/21 22:08 Dose: 10 ml Documented by: Sodium Chloride (Sodium Chloride 0.9% 10 Ml Flush Syringe) 10 ml IV PRN PRN PRN Reason: LINE FLUSH Last Admin: 08/18/21 00:31 Dose: 10 ml Documented by: Physical Examination - Vital Signs Vital Signs: Vital Signs Pulse Resp BP 61 22 130/74 08/17/21 00:45 08/17/21 00:45 08/17/21 00:45 Results - Laboratory Findings CBC and BMP: 08/18/21 05:16 08/19/21 00:53 Abnormal Lab Findings: Abnormal Labs 08/17/21 08/17/21 08/17/21 00:51 00:51 00:51 WBC Hgb Hct MCH 26 L RDW 19.9 H Plt Count Lymph % (Auto) [place] % (Auto) 13.1 H Eos % (Auto) PT INR Potassium 3.2 L Chloride BUN 6 L Glucose 116 H Calcium AST 47 H Ammonia Plasma/Serum Alcohol 0.15 H 08/17/21 08/17/21 08/18/21 00:51 00:51 01:11 WBC Hgb Hct MCH RDW Plt Count Lymph % (Auto) [place] % (Auto) Eos % (Auto) PT 16.3 H INR 1.26 H Potassium 3.3 L Chloride BUN Glucose 102 H Calcium 7.8 L D AST Ammonia 77.0 H Plasma/Serum Alcohol 08/18/21 08/18/2108/18/21 05:16 05:16 05:16 WBC 4.1 L Hgb 9.9 L Hct 29.8 L MCH 27 L RDW 20.2 H Plt Count 139 L Lymph % (Auto) 42.3 H [place] % (Auto) 8.9 H Eos % (Auto) 5.1 H PT 17.6 H INR 1.40 H Potassium 3.3 L Chloride 107.7 H BUN Glucose Calcium 8.3 L AST Ammonia Plasma/Serum Alcohol
[2021-08-18] MEDS: MORPHINE 2 MG/1 ML INJ IV PRN (18:18)
--- NOTE | 2021-08-18 23:10 | Vascular Lab Report ---
DUPLEX DOPPLER ULTRASOUND CAROTID, BILATERAL INDICATION / CLINICAL INFORMATION: Syncope. COMPARISON: None available. FINDINGS: RIGHT CAROTID: - PLAQUE ESTIMATE (%): < 50% - CCA velocity: 109 cm/sec. - ICA peak systolic velocity: 81 cm/sec. - ICA/CCA PSV Ratio: Less than 2 Right Vertebral Artery: Antegrade flow. LEFT CAROTID: - PLAQUE ESTIMATE: < 50% - CCA velocity: 87 cm/sec. - ICA peak systolic velocity: 57 cm/sec. - ICA/CCA PSV Ratio: Less than 2 Left Vertebral Artery: Antegrade flow. IMPRESSION: 1. Right Internal Carotid Artery: Less than 50% diameter stenosis. 2. Left Internal Carotid Artery: Less than 50% diameter stenosis. Velocity criteria are extrapolated from diameter data as defined by the Society of Radiologists in Ul trasound Consensus Conference, Radiology 2003; 229;340-346. NO STENOSIS (NORMAL) * Plaque = none; ICA PSV < 125 cm/sec; ICA/CCA PSV Ratio < 2.0 <50% STENOSIS * Plaque < 50%; ICA PSV < 125 cm/sec; ICA/CCA PSV Ratio < 2.0 50-69% STENOSIS * Plaque > 50%; ICA PSV = 125-230 cm/sec; ICA/CCA PSV Ratio = 2.0-4.0 >70% BUT <100% STENOSIS * Plaque > 50%; ICA PSV > 230 cm/sec; ICA/CCA PSV Ratio > 4.0 NEAR OCCLUSION * Plaque = visible lumen; ICA PSV = high/low/none; ICA/CCA PSV Ratio = variable TOTAL OCCLUSION * Plaque = no lumen; ICA PSV = none; ICA/CCA PSV Ratio = N/A Signer Name: Theo Montes MD Signed: 08/18/2021 11:06 PM Workstation Name: [email or web address]
[2021-08-19 01:30] LABS: Blood Urea Nitrogen 9 mg/dL (7-17); Calcium 8.8 mg/dL (8.4-10.2); Hemolysis Index 9
[2021-08-19 01:31] LABS: BUN/Creatinine Ratio 15
[2021-08-19] MEDS: MORPHINE 4 MG/1 ML INJ IV PRN (05:45)
[2021-08-19 12:25] VITALS: BP 150/78
[2021-08-19] MEDS: MORPHINE 2 MG/1 ML INJ IV PRN (12:30)
[2021-08-19] MEDS: SODIUM CHLORIDE 0.9% 1000 ML 1,000 ML IV SCH (12:30)
[2021-08-19] MEDS ORDERED: ACETAMINOPHEN 325 MG TAB PO PRN (13:39)
--- NOTE | 2021-08-19 14:57 | Event Note ---
Date: 08/19/21 The patient was discharged home on 08/19/2021. Please refer to the detailed discharge summary performed by on 08/18/2021. The patient was discharged home with a rolling walker per the recommendations of physical therapy. The patient was safely discharged to her daughter.
== END 2021-08-19 16:50 | disposition home or self-care (01) ==
LOC: ED 00:15 → 4A 03:28
PROVIDERS: ADMIT Internal Medicine Geriatric Medicine; ATTEND Student in an Organized Health Care Education/Training Program
DX: R55 Syncope and collapse (principal); C22.9 Malignant neoplasm of liver, not specified as primary or secondary; I10 Essential (primary) hypertension; E72.20 Disorder of urea cycle metabolism, unspecified; E87.6 Hypokalemia; F10.10 Alcohol abuse, uncomplicated; M54.5 Low back pain; R41.89 Other symptoms and signs involving cognitive functions and awareness; Z79.899 Other long term (current) drug therapy; Z90.49 Acquired absence of other specified parts of digestive tract
CPT/HCPCS: 36415; 70450; 70486; 71045; 72125; 72170; 80048; 80053; 80307; 81001; 82140; 82962; 83735; 84443; 84484; 85025; 85610; 85730; 93005; 93306; 93880; 96361; 96365; 96366; 96372; 96375; 96376; 97110; 97161; 99285; G0378; J1644; J1885; J2060; J2270; J3480; J7030; 80320; G0480